=== PATIENT | male | born 1970 ===

== ENCOUNTER 2021-03-30 15:47 | Inpatient (IN) ==
[2021-03-30] MEDS ORDERED: Al Hydrox/Mg Hydrox/Simet LIQ 30 ML UDC PO PRN (22:31)
[2021-03-30] MEDS ORDERED: Ziprasidone IM 20 mg VIAL 1 ml VIAL IM PRN (22:32)
[2021-03-30] MEDS ORDERED: HYDROcodone/ACETAMIN 5/325 mg TAB PO PRN (23:19)
[2021-03-30] MEDS ORDERED: Albuterol HFA INHALER 8 gm MDI INH PRN (23:31)
[2021-03-31 08:15] LABS: HDL Cholesterol 74.1 mg/dL
[2021-03-31] MEDS: Vitamin THERAPEUTIC TAB PO SCH (09:40)
[2021-04-01] MEDS: Vitamin THERAPEUTIC TAB PO SCH ×2 (09:04→12:46)
[2021-04-01 11:58] VITALS: BP 154/112
[2021-04-01 12:15] LABS: Albumin 3.6 g/dL (3.2-5.2); Albumin/Globulin Ratio 1.2 (1-3); Calcium 8.8 mg/dL (8.6-10.3); Globulin 2.9 g/dL (2-4); Total Bilirubin 0.4 mg/dL (0.2-1.0); Total Protein 6.5 g/dL (6.4-8.9); eGFR CKD-EPI 88.4 (>60)
[2021-04-01] MEDS ORDERED: Mometasone/Formoter 100/5 MDI INH SCH (19:00)
== END 2021-04-01 15:45 | disposition home or self-care (01) | DRG 885 ==
LOC: ED 15:47 → EDHOLD 18:45 → BSU 22:12
PROVIDERS: ADMIT Psychiatry & Neurology Addiction Psychiatry; ATTEND Student in an Organized Health Care Education/Training Program

== ENCOUNTER 2021-12-29 15:27 | Inpatient (IN) ==
[2021-12-29 16:25] LABS: ABS Lymphocytes 0.8 10^3/ul (1.0-4.8); ABS Monocytes 0.6 10^3/ul (0-0.8); ABS Neutrophils 10.5 10^3/ul (1.5-7.7); Hematocrit 40 % (42-52); Hemoglobin 13.5 g/dL (14.0-18.0); Lymphocyte % 6.4 %; Mean Corpuscular HGB Conc 33 g/dL (31-36); Mean Corpuscular Hemoglobin 29 pg (27-31); Mean Corpuscular Volume 86 fL (80-94); Mean Platelet Volume 7.7 fL (7.4-10.4); Platelet Count 210 10^3/uL (150-450); Red Blood Count 4.68 10^6 /uL (4.18-5.48); Red Cell Distribution Width 14 % (10-15); White Blood Count 11.9 10^3/uL (3.5-10.8)
[2021-12-29 16:56] LABS: Albumin 4.2 g/dL (3.2-5.2); Albumin/Globulin Ratio 1.5 (1-3); Calcium 9.2 mg/dL (8.6-10.3); Globulin 2.8 g/dL (2-4); Potassium 4.4 mmol/L (3.5-5.0); Total Bilirubin 0.3 mg/dL (0.2-1.0); eGFR CKD-EPI 104.3 (>60)
[2021-12-29] MEDS ORDERED: LORazepam 2 mg VIAL 1 ml IM ONE (23:57)
[2021-12-29] MEDS ORDERED: Lorazepam PYXIS KEY PRN (23:57)
[2021-12-29] MEDS ORDERED: Ziprasidone IM 20 mg VIAL 1 ml VIAL IM ONE (23:58)
[2021-12-30] MEDS ORDERED: Albuterol HFA INHALER 8 gm MDI INH ONE ×2 (02:40→05:27)
[2021-12-30] MEDS ORDERED: Al Hydrox/Mg Hydrox/Simet LIQ 30 ML UDC PO PRN (10:06)
[2021-12-30] MEDS: Mometasone/Formoter 200/5 MDI INH SCH (17:53)
[2021-12-30] MEDS: Albuterol HFA INHALER 8 gm MDI INH PRN (18:45)
[2021-12-31] MEDS: Albuterol HFA INHALER 8 gm MDI INH PRN ×2 (04:41→12:24)
[2021-12-31] MEDS: Mometasone/Formoter 200/5 MDI INH SCH ×2 (07:00→21:06)
[2022-01-01] MEDS: Albuterol HFA INHALER 8 gm MDI INH PRN ×3 (06:28→22:55)
[2022-01-01] MEDS: Mometasone/Formoter 200/5 MDI INH SCH ×3 (08:45→22:54)
[2022-01-01 15:39] LABS: TSH Ultra Thyroid Stim Horm 0.97 mcIU/mL (0.34-5.60)
[2022-01-02] MEDS: Mometasone/Formoter 200/5 MDI INH SCH ×2 (08:46→20:27)
[2022-01-02] MEDS: Albuterol HFA INHALER 8 gm MDI INH PRN ×2 (15:37→20:27)
[2022-01-02 21:50] VITALS: BP 164/106
[2022-01-03] MEDS: Albuterol HFA INHALER 8 gm MDI INH PRN (05:54)
[2022-01-03] MEDS: Mometasone/Formoter 200/5 MDI INH SCH (07:42)
== END 2022-01-03 10:30 | disposition home or self-care (01) | DRG 897 ==
LOC: ED 15:27 → EDHOLD 12-30 10:06 → BSU 12-30 12:10
PROVIDERS: ADMIT Psychiatry & Neurology Psychiatry; ATTEND Psychiatry & Neurology Psychiatry